=== PATIENT | female | born 1985 | race Caucasian/White ===

== ENCOUNTER 2016-09-15 18:32 | Emergency (ER) | payer BC, OTHER ==
[~2016-09-15] VITALS: Ht 162.6 cm; Wt 69.9 kg
[2016-09-15] MEDS ORDERED: diphenhdrAMINE HCL 50 MG/1 ML VL IV ONE ×2 (19:15→20:15)
[2016-09-15] MEDS ORDERED: methylPREDNISolone SOD SUCC 125 MG/2 ML VL IV ONE ×2 (19:15→20:15)
[2016-09-15] MEDS ORDERED: FAMOTIDINE (10MG/ML) 2ML VL IV ONE (20:15)
[2016-09-16 01:42] VITALS: BP 110/62
== END 2016-09-16 01:43 | disposition home or self-care (01) ==
LOC: ER 18:36
DX: T78.3XXA Angioneurotic edema, initial encounter (principal); I10 Essential (primary) hypertension; Z88.6 Allergy status to analgesic agent
CPT/HCPCS: 94761; 96374; 96375; 99284; J1200; J2930; J3490